=== PATIENT | male | born 1995 | race Caucasian/White ===

== ENCOUNTER 2021-08-04 17:15 | Emergency (ER) | payer BC, OTHER ==
[2021-08-04] MEDS ORDERED: Albuterol/Ipratropium 3.0-0.5 MG/3 ML Neb Soln NEB ONE ×2 (18:22→18:26)
[2021-08-04] MEDS ORDERED: predniSONE 20 MG Tab PO ONE (18:28)
--- NOTE | 2021-08-04 18:30 | EDM.PDOC ---
<Francisco Lerner - Last Filed: 08/04/21 18:28> ED HPI GENERAL MEDICAL PROBLEM - General Chief Complaint: Respiratory Problem Stated Complaint: DIFFICULTY BREATHING Time Seen by Provider: 08/04/21 18:21 - History of Present Illness INITIAL COMMENTS - FREE TEXT/NARRATIVE: History of present illness: [] Patient has 2 days of shortness of breath. He can't get a deep breath. It hurts in his chest when he tries to breathe. The patient has no history of asthma. He feels like the cold weather has caused him to feel this way. He doesn't have any fever and chills but feels hot. His parents are vaccinated for COVID-19 is they are in healthcare. Patient is not vaccinated for COVID-19. Patient has enjoyed good health. He does smoke however. Review of systems: As per history of present illness and below otherwise all systems reviewed and negative. Past medical history: As per history of present illness and as reviewed below otherwise noncontributory. Surgical history: As per history of present illness and as reviewed below otherwise noncontributory. Social history: No reported history of drug or alcohol abuse. Family history: As per history of present illness and as reviewed below otherwise noncontributory. Physical exam: Constitutional - well developed, well-nourished and in no acute distress HEENT - normocephalic, no evidence of trauma - external nose and mouth normal - no mass in neck and no JVD - mucosae moist EYES - full EOM, PERRL, no icterus - no evidence of inflammation, injection, or drainage Respiratory - no respiratory distress, equal bilateral expansion, lungs taking limited inhalation. Prolonged expiratory phase. Markedly diminished lung sounds throughout with scattered wheezes. Cardiovascular - Regular Rhythm with S1 and S2 appreciated and no murmur, gallop or rub. GI - abdomen soft without distension or organomegaly - normal bowel sounds - no guard or rebound Musculoskeletal no gross deformity of long bones or joints - no tenderness, swelling or edema Neurologic - Alert and oriented times four - CN II-XII grossly intact - motor sensory and coordination symmetrically normal Psychiatric - appropriate mood and affect with normal thought content Hematologic - No petechiae or purpura - mucosa appropriate color and sclera not pale - normal nail bed color and refill Integument - no rash or evidence of trauma - normal turgor Diagnostics: [] Therapeutics: [] Impression: [] Plan: [] Definitive disposition and diagnosis as appropriate pending reevaluation and review of above. Chest Pain Score (Numeric/FACES): 7 - Related Data Allergies Allergy/AdvReac Type Severity Reaction Status Date / Time No Known Allergies Allergy Verified 08/04/21 18:14 Home Meds: Home Meds Albuterol [Ventolin HFA] 8 gm IH Q4H PRN #1 ea 08/04/21 [Rx] predniSONE [Prednisone] 60 mg PO DAILY #21 tablet 08/04/21 [Rx] Past Medical History - Past Health History Medical/Surgical History: Denies Medical/Surgical History Social & Family History - Family History Family Medical History: No Pertinent Family History - Caffeine Use Caffeine Use: Reports: Energy Drinks Caffeine Use Comment: 1 drink per week ED ROS GENERAL - Review of Systems Review Of Systems: Comprehensive ROS is negative, except as noted in HPI. 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 Your first dose of prednisone should be tomorrow. 4 to 5 days please take 2 puffs of the albuterol inhaler every 4-6 hours while you are awake. If you feel like you are having more trouble breathing you can take additional puffs from the albuterol inhaler. However if you are finding that you needed consistently more frequently than every 4 hours please return to the ER. I encourage you to follow-up with your primary care doctor if you do not have a primary care doctor you can follow-up at one of the clinics listed below. [facility] - Primary Care [address] [place] [id number] [id number] The following information is given to patients seen in the emergency department who are being discharged to home. This information is to outline your options for follow-up care. We provide all patients seen in our emergency department with a follow-up referral. The need for follow-up, as well as the timing and circumstances, are variable depending upon the specifics of your emergency department visit. If you don't have a primary care physician on staff, we will provide you with a referral. We always advise you to contact your personal physician following an emergency department visit to inform them of the circumstance of the visit and for follow-up with them and/or the need for any referrals to a consulting specialist. The emergency department will also refer you to a specialist when appropriate. This referral assures that you have the opportunity for follow-up care with a specialist. All of these measure are taken in an effort to provide you with optimal care, which includes your follow-up. Under all circumstances we always encourage you to contact your private physician who remains a resource for coordinating your care. When calling for follow-up care, please make the office aware that this follow-up is from your recent emergency room visit. If for any reason you are refused follow-up, please contact the [facility] Emergency Department at and asked to speak to the emergency department charge nurse. Sepsis Event Note (ED) - Evaluation Sepsis Screening Result: Possible Sepsis Risk <Norberto Bella - Last Filed: 08/04/21 19:28> Course - Vital Signs Last Recorded V/S: Last Vital Signs Temp 98.3 F 08/04/21 18:14 Pulse 80 08/04/21 18:14 Resp 24 H 08/04/21 18:14 BP 150/78 H 08/04/21 18:14 Pulse Ox 98 08/04/21 18:14 - Orders/Labs/Meds Orders: Active Orders 24 hr Category Date Time Status BMP [BASIC METABOLIC PANEL,BMP] [CHEM] Stat Lab 08/04/21 19:10 Received Labs: Laboratory Tests 08/04/21 08/04/21 Range/Units 18:00 19:10 WBC 13.61 H (4.0-11.0) K/uL RBC 4.97 (4.50-5.90) M/uL Hgb 14.9 (13.0-17.0) g/dL Hct 43.6 (38.0-50.0) % MCV 87.7 (80.0-98.0) fL MCH 30.0 (27.0-32.0) pg MCHC 34.2 (31.0-37.0) g/dL RDW Std Deviation 40.0 (28.0-62.0) fl RDW Coeff of Tee 13 (11.0-15.0) % Plt Count 221 (150-400) K/uL MPV 9.90 (7.40-12.00) fL Neut % (Auto) 78.5 (48.0-80.0) % Lymph % (Auto) 10.8 L (16.0-40.0) % Fisher % (Auto) 9.9 (0.0-15.0) % Eos % (Auto) 0.7 (0.0-7.0) % Baso % (Auto) 0.1 (0.0-1.5) % Neut # (Auto) 10.7 H (1.4-5.7) K/uL Lymph # (Auto) 1.5 (0.6-2.4) K/uL Fisher # (Auto) 1.4 H (0.0-0.8) K/uL Eos # (Auto) 0.1 (0.0-0.7) K/uL Baso # (Auto) 0.0 (0.0-0.1) K/uL Nucleated RBC % 0.0 /100WBC Nucleated RBCs # 0 K/uL Influenza Type A RNA NEGATIVE (NEGATIVE) Influenza Type B RNA NEGATIVE (NEGATIVE) SARS-CoV-2 RNA (MARGOT) NEGATIVE (NEGATIVE) Meds: Medications Discontinued Medications Generic Name Dose Route Start Last Admin Trade Name Freq PRN Reason Stop Dose Admin Albuterol/Ipratropium 3 ml 08/04/21 18:26 08/04/21 18:33 Albuterol/Ipratropium 3.0-0.5 Mg/3 Ml Neb Soln NEB 08/04/21 18:27 3 ml ONETIME ONE Administration Albuterol/Ipratropium 3 ml 08/04/21 18:22 08/04/21 18:33 Albuterol/Ipratropium 3.0-0.5 Mg/3 Ml Neb Soln NEB 08/04/21 18:23 3 ml ONETIME ONE Administration Prednisone 60 mg 08/04/21 18:28 08/04/21 18:34 Prednisone 20 Mg Tab PO 08/04/21 18:29 60 mg ONETIME ONE Administration Departure - Departure Time of Disposition: 19:27 Condition: Good - Discharge Information *PRESCRIPTION DRUG MONITORING PROGRAM REVIEWED*: Not Applicable *COPY OF PRESCRIPTION DRUG MONITORING REPORT IN PATIENT NERY: Not Applicable Sepsis Event Note (ED) - Focused Exam Vital Signs: Vital Signs Temp Pulse Resp BP Pulse Ox 08/04/21 18:14 98.3 F 80 24 H 150/78 H 98 - Assessment/Plan Assessment:: Patient received in signout from Dr. Lerner at 7 PM. On my reassessment his work of breathing is normal he has no active wheezing and his symptoms were improved by the 2 neb treatments and the prednisone. The patient's has an albuterol inhaler at home. A prescription for prednisone and albuterol was sent to the pharmacy. Return precautions were discussed and understood he was encouraged to follow-up with primary care. Chest x-ray clear influenza and RSV negative. I do think this is cold related bronchospasm. He had a similar episode on a cold day in [place] a couple years ago.
[2021-08-04 19:02] LABS: CORONAVIRUS COVID-19 NAA NEGATIVE (NEGATIVE); INFLUENZA A NAA NEGATIVE (NEGATIVE); INFLUENZA B NAA NEGATIVE (NEGATIVE)
--- NOTE | 2021-08-04 19:08 | CR ---
INDICATION: Dyspnea. TECHNIQUE: Chest 1 view. COMPARISON: Chest radiograph 07/23/2016. FINDINGS: No focal consolidation, pleural effusion, or pneumothorax. Normal heart size and pulmonary vascularity. The bones are unremarkable. IMPRESSION: No acute cardiopulmonary findings. Dictated by Jerilyn Manning MD @ 08/04/2021 7:05:53 PM (Electronically Signed)
[2021-08-04 19:34] LABS: BLOOD UREA NITROGEN,BUN 14 mg/dL (7.0-18.0); CARBON DIOXIDE,CO2 29.9 mmol/L (21.0-32.0); CHLORIDE,CL 101 mmol/L (98-107); GLUCOSE RANDOM 110 mg/dL (74-106); POTASSIUM,K 3.8 mmol/L (3.5-5.1); SODIUM,NA 139 mmol/L (136-148)
[2021-08-04 19:51] VITALS: BP 136/69; PULSE 107
== END 2021-08-04 19:51 | disposition home or self-care (01) ==
LOC: MW.ED 17:15
DX: J98.01 Acute bronchospasm (principal); Z20.822 Contact with and (suspected) exposure to COVID-19
CPT/HCPCS: 0240U; 36415; 71045; 80048; 85025; 99284; A9270; J7620-GY

== ENCOUNTER 2022-01-03 11:17 | Emergency (ER) | payer BC ==
[2022-01-03] MEDS ORDERED: Sodium Bicarbonate 8.4% 50 MEQ/50 ML Syringe IVPUSH ONE ×2 (11:18→11:20)
[2022-01-03] MEDS: EPINEPHrine 1:10,000 1 MG/10 ML Syringe IVPUSH ONE ×2 (11:20→12:23)
[2022-01-03] MEDS ORDERED: EPINEPHrine 1:10,000 1 MG/10 ML Syringe IVPUSH ONE ×2 (11:24→11:29)
[2022-01-03] MEDS ORDERED: Sodium Chloride 0.9% 1,000 ML IV STA (11:36)
[2022-01-03] MEDS ORDERED: Lactated Ringers 1,000 ML IV STA (11:36)
[2022-01-03] MEDS ORDERED: Calcium Gluconate 10% 1 GM/10 ML SDV IVPUSH ONE (11:36)
[2022-01-03] MEDS: EPINEPHrine 1 MG/1 ML Amp IVPUSH ONE ×2 (12:23→18:11)
== END 2022-01-03 11:36 | disposition expired ==
LOC: MW.ED 11:17
DX: S30.0XXA Contusion of lower back and pelvis, initial encounter (principal); Z79.899 Other long term (current) drug therapy; V29.9XXA Motorcycle rider (driver) (passenger) injured in unspecified traffic accident, initial encounter; Y92.410 Unspecified street and highway as the place of occurrence of the external cause
CPT/HCPCS: 31500; 36415; 36430; 71045; 72170; 86900; 86901; 86920; 92950; 96374; 96375; 99285; J0171; J0610; J7030; J7120; P9016